=== PATIENT | female | born 1985 | race Caucasian/White ===

== ENCOUNTER 2016-06-02 22:26 | Day surgery (SDC) | payer MEDICAID, OTHER ==
[2016-06-02] VITALS (8 sets, daily range): BP systolic 118–125; BP diastolic 74–83; PULSE 89–96; RESP 16–22; TEMP 97–97.4; O2SAT 99–100
[~2016-06-02] VITALS: Ht 170.2 cm; Wt 62.1 kg
[~2016-06-02 22:26] MED LIST: DEXAMETHASONE 4mg/ml - 1ml INJECTION IV ONE; DOCO200C7 PO; ESMOLOL 100mg/10ml INJECTION IV ONE; FENTANYL 100mcg/2ml INJECTION IV ONE; HYDR-3989 PO; IBUP-1547 PO; LEVO25TA4 PO; METOCLOPRAMIDE 10mg/2ml INJECTION IV ONE; ONDANSETRON 4mg/2ml INJECTION IV ONE; PHENYLEPHRINE 10mg/ml INJECTION IV ONE; SALINE FLUSH 10ml SYRINGE IVF ONE
[2016-06-02] MEDS ORDERED: ONDANSETRON 4mg/2ml INJECTION IV ONE (22:45)
[2016-06-02] MEDS ORDERED: LR 1,000 ML IV PRN (22:45)
[2016-06-02] MEDS ORDERED: FAMOTIDINE 20 MG in NORMAL SALINE 50 ML IV ONE (22:45)
--- NOTE | 2016-06-02 22:48 | ANESPREOP ---
Anesthesia Record Date and Time DATE: 06/02/16 TIME: 22:47 Proposed Surgical Procedure D&C NPO since: 1800 Allergies: Coded Allergies: meperidine (Verified Allergy, Mild, 05/15/14) pseudoephedrine (Verified Allergy, Mild, 05/15/14) silicone (Verified Allergy, Mild, 05/15/14) Ht/Wt/BMI Height: 5 ' 3.00 " Weight: kg BMI: kg/m2 Medications Docosahexanoic Acid ( Dha) 200 Mg Capsule, 1 CAP PO DAILY, (Reported) Hydrocodone/Apap ([place] 5-325 Tablet) 1 Tab Tablet, 1-2 TAB PO Q4H PRN for PAIN Ibuprofen (Ibuprofen) 800 Mg Tablet, 800 MG PO Q8H PRN for PAIN Levothyroxine Sodium (Synthroid) 25 Mcg Tablet, 1 TAB PO ACB, (Reported) BEST IF TAKEN BEFORE BREAKFAST Currently on Beta Sabra: No Medical/Surgical History Anesthesia PMH: Reports: Other (12 WEEKS MISSED AB), Thyroid Disease (HYPO PER H&P), Denies: *Diabetes, Anesthesia Reactions, Malignant Hyperthermia Smoking Status: Never smoker Use Chewing Tobacco?: No Second Hand Exposure: No Substance Use Type: does not use Past Surgical History Orthopedic Surgeries: Yes - ACL REPAIR,KNEE SCOPE/SCREW PLACED Abdominal Surgeries: Genitourinary Surgeries: Cardiac Surgeries: Endocrine Surgeries: Reproductive Surgeries: Neurological Surgeries: Ear Surgeries: Nose Surgeries: Throat Surgeries: Other Surgeries: Yes - WISDOM TEETH PER H&P Anesthesia Adverse Reactions: FOUND none Family Hx of Anesthesia Advers: none Hx of Motion Sickness: No Physical Exam Respiratory: Bilat breath sounds equal, Lungs clear Cardiovascular: FOUND Regular rate, rhythm Airway Assessment Mallampati Score: I TMD: 3 Fingerbreadths Neck Extension: Good Overall Assessment: No Airway Concerns ASA: 2, E Plan Anesthesia Plan: GETA Discussion Discussed risks/options/alternatives of anesthesia and questions answered. Patient consents. Nursing pain assessment noted. Present: Family Member Attestation Statement Prior to the delivery of any anesthetic medication, I examined the patient, developed the plan, obtained the patient's consent and discussed the risk and benefits of the procedure with the patient/guardian. JUAN MCCLELLAND CRNA Jun 02, 2016 22:48
--- NOTE | 2016-06-02 22:52 | NUR ---
OR PT TAKEN TO OR VIA CART BY DR. BARROW, WITH IV FLUIDS INFUSING VIA GRAVITY.
[2016-06-02 23:01] LABS: EOSINOPHILS # (AUTO) 0.1 T/MM3 (0-0.5); HCT - HEMATOCRIT 36.6 % (36-46); HGB - HEMOGLOBIN 12.5 GM/DL (12-16); IMMATURE GRANULOCYTE # (AUTO) 0.02 T/MM3 (0.00-0.03); IMMATURE GRANULOCYTE % (AUTO) 0.2 % (0.0-0.5); LYMPHOCYTES % (AUTO) 19.3 % (23-45); MEAN CORPUSCULAR HGB 30.9 UUG (26-34); MEAN CORPUSCULAR HGB CONC(MCHC 34.2 GM/DL (31-37); MEAN CORPUSCULAR VOLUME 90.4 UM3 (80-100); MEAN PLATELET VOLUME 10.4 UM3 (9.4-12.4); MONOCYTES # (AUTO) 0.4 T/MM3 (0-0.8); MONOCYTES % (AUTO) 3.7 % (0-9.0); NEUTROPHILS % (AUTO) 75.8 % (33-66); RED BLOOD COUNT 4.05 M/MM3 (4.00-5.20); WBC - WHITE BLOOD COUNT 10.5 T/MM3 (4.5-11.0)
--- NOTE | 2016-06-02 23:18 | GYNOPNOTE1 ---
ACCOUNTING/FINANCE TUTOR Postoperative Note Date of Operation: 06/02/16 Preoperative Diagnosis: Incomplete Postoperative Diagnosis: Same as Preoperative Procedure: Suction D&C Surgeon: Corby Barrow MD Anesthesia Provider: Jame Vargas CRNA Anesthesia Type: general Estimated Blood Loss: 150cc CORBY BARROW MD Jun 02, 2016 23:18
[2016-06-02] MEDS ORDERED: HYDROCODONE/APAP 5 mg/325 mg TABLET PO PRN (23:30)
[2016-06-02] MEDS ORDERED: METOCLOPRAMIDE 10mg/2ml INJECTION IV PRN (23:30)
[2016-06-02] MEDS ORDERED: IBUPROFEN 200 MG TABLET PO PRN (23:30)
[2016-06-02] MEDS ORDERED: FENTANYL 100mcg/2ml INJECTION IV PRN (23:30)
[2016-06-02] MEDS ORDERED: ONDANSETRON 4mg/2ml INJECTION IV PRN ×2 (23:30)
--- NOTE | 2016-06-02 23:50 | ANESPO ---
Post-Op Note Date 06/02/16 Time: 23:50 Status Pt Participated in Evaluation: Pt participated in person Vital Signs Date Time Temp Pulse Resp B/P Pulse Ox O2 Delivery O2 Flow Rate FiO2 06/02/16 23:24 97.0 95 18 124/83 100 Mask 6.00 Respiratory Function: Airway patent, Regular respirations Cardiovascular Function: Regular pulse Mental Status: Alert/oriented Pain Level Intensity: 0 Hydration: IV infusing Complications during Recovery None apparent Follow-Up Instructions Instructions Per Surgeon JUAN MCCLELLAND CRNA Jun 02, 2016 23:50
[2016-06-03] VITALS (12 sets, daily range): BP systolic 104–139; BP diastolic 65–82; PULSE 75–100; RESP 12–20; TEMP 97.6–97.8; O2SAT 96–100; Ht 170.2 cm; Wt 62.1 kg
[2016-06-03 07:13] LABS: HCT - HEMATOCRIT 31.3 % (36-46); HGB - HEMOGLOBIN 10.7 GM/DL (12-16); MEAN CORPUSCULAR HGB CONC(MCHC 34.2 GM/DL (31-37); MEAN CORPUSCULAR VOLUME 90.7 UM3 (80-100); RED BLOOD COUNT 3.45 M/MM3 (4.00-5.20); WBC - WHITE BLOOD COUNT 6.8 T/MM3 (4.5-11.0)
--- NOTE | 2016-06-03 09:40 | NUR ---
SHIFT REPORT PT ARRIVED ON THE UNIT AT 2252 06/02 FROM PACU. PT TRANSFERRED EASILY FROM CART TO BED. PT ALERT/ORIENTED X3. VSS ON ROOM AIR 100% 02. AFEBRILE, AMBULATED TO BR SEVERAL TIMES THIS SHIFT WITH LITTLE EFFORT OR PAIN. DENIES N/V. NO PAIN MEDS GIVEN. BROUGHT TO THE UNIT WITH LR RUNNING AT 100. DCD AFTER BAG WAS FINISHED. SCANT AMOUNT OF BLOOD ON MAXI PAD. PT REQUESTED SEVERAL TIMES TO DC IV LOCK. THIS NURSE EXPLAINED TO THE PT THE IMPORTANCE OF MAINTAINING THE IV LOCK SITE. THE PT ADAMANTLY INSISTED THAT IT BE TAKEN OUT. I TOLD HER THAT IT WAS WITHIN HER RIGHTS TO REFUSE, AND I THEN RELUCTANTLY DCD THE IV SITE. PT ABLE TO TOLERATE FOOD AND FLUIDS WELL. DISCHARGE CRITERIA IS MET.
--- NOTE | 2016-06-03 09:46 | GSPOSTPN ---
Postoperative Progress Note 06/03/16 vss af disc surgery and hgb level ready for dc q&a f/u next wk UMM BARROW MD Jun 03, 2016 09:45
--- NOTE | 2016-06-03 10:54 | NUR ---
DISCHARGE PT DISCHARGED TO HOME IN GOOD CONDITION. D&C EDUCATION REVIEWED. PT'S QUESTIONS ANSWERED AND PT VERBALIZED UNDERSTANDING. SCANT AMOUNT OF BLOOD ON PAD. PT WHEELED OUT TO FRONT DOOR ACCOMPANIED BY NURSING STAFF AND .
--- NOTE | 2016-06-03 11:37 | OPNOTEF ---
DATE OF SURGERY: 06/02/2016 PREOPERATIVE DIAGNOSIS: 30-year-old white female, G4, P3, with incomplete AB. POSTOPERATIVE DIAGNOSIS: Same PROCEDURE: Suction D&C. EBL: 150 ml intraoperatively. SURGEON: Corby Davis MD ANESTHESIA: General endotracheal by Jame Vargas CRNA. COMPLICATIONS: None This is a patient of mine who came into the office this morning with two weeks of spotting. We diagnosed an intrauterine demise in the office today. We gave options of expectant management versus D&C and she opted for the D&C which was scheduled for tomorrow morning when she could be NPO. This evening she paged me and reported that she had passed the baby at home with some clots and the placenta. I talked her through reasons to still come in. The concern would be if the placenta hadn't really passed and it was just a blood clot. If her cramping and bleeding went away or greatly diminished then she was probably fine to just call me in the morning and come in at 8 a.m. for a sono to ensure it's all done. If it wasn't done then we would go ahead with the D&C tomorrow. If her bleeding got heavier or if she became lightheaded or dizzy, she was to call back. She dialed me back at my home phone a short time later and said she was pouring out blood and becoming lightheaded, so I advised her to come immediately to the emergency room and that I would call to get things ready and meet her there. I arrived at the ER in approximately 40-45 minutes before she arrived and waited. When she got there she said that she was still gushing blood and the pads were soaked underneath her. We re-consented her for a D&C and as soon as we could took her to the operating room. DESCRIPTION OF PROCEDURE After adequate general anesthesia the patient was prepped and draped in the low lithotomy position. The vaginal tract was filled with blood clots. The heavy weighted speculum was placed posteriorly and an anterior retractor was used to visualize the cervix. Cervix was dilated and filled with placenta. I used ring forceps to tease out the placenta and as much tissue as I could and there was a very large amount of tissue that came out. Then I used sharp curette to curettage the endometrial cavity. Then I used a #10 curved suction curette to empty all the clots out of the uterus. Then I clamped down the uterus with a bimanual exam and watched. Bleeding almost immediately ceased at that point. I watched for several minutes and did another pass of the sharp and suction curette and no additional tissue was obtained, so the surgery was completed and all instruments were removed from the vaginal tract. The patient went to the recovery room in stable condition. I went to the waiting room and talked her . ABHISHEK
== END 2016-06-03 10:48 | disposition home or self-care (01) ==
LOC: ED 22:26 → SCU 22:56 → SRG 22:56 → SCU 06-03 10:48
PROVIDERS: ATTEND Obstetrics & Gynecology
DX: O03.4 Incomplete spontaneous abortion without complication (principal); E03.9 Hypothyroidism, unspecified; Z79.899 Other long term (current) drug therapy
CPT/HCPCS: 36415; 59812; 85025; 85027; 86850; 86900; 86901; 99285; J0330; J1100; J2370; J2405; J2765; J3010; J7120

== ENCOUNTER → 2016-06-03 | Day surgery (SDC) | payer OTHER, MEDICAID ==
[~2016-06-03] MED LIST changes: -DEXAMETHASONE 4mg/ml - 1ml INJECTION IV ONE; -ESMOLOL 100mg/10ml INJECTION IV ONE; -FENTANYL 100mcg/2ml INJECTION IV ONE; +LIDOCAINE 1% (10mg/ml) 2ml SDV INJ ONE; +LR 1,000 ML IV SCH; -METOCLOPRAMIDE 10mg/2ml INJECTION IV ONE; -ONDANSETRON 4mg/2ml INJECTION IV ONE; -PHENYLEPHRINE 10mg/ml INJECTION IV ONE; -SALINE FLUSH 10ml SYRINGE IVF ONE
--- OUTSIDE RECORDS SUMMARY | 2016-06-09 20:52 | XMS REPORT | Continuity of Care Document ---
Author Author [facility] Organization [facility] Address Unknown Phone Unavailable Care Team Providers Care Mail Distributor Name Role Phone Jordon TRISTAN MD Primary Care Physician [phone] Insurance Providers Guarantor Flory Felix Address [address] [place] [address] Email [email or web address] [facility] Policy Number [id number] Subscriber's Name Flory Felix Relationship 18 Self Effective Date 16 Expiration Date 16 Advance Directives Directive Response Recorded Date/Time Ordered Resuscitation Status Full Code 06/02/16 10:56pm Resuscitation Documents on File No 06/03/16 6:31am DPOA for Healthcare Only No 06/03/16 6:31am Living Will No 06/03/16 6:31am Problems Active Problems Medical Problem Onset Date Status 05/31/2014 Acute Vaginal bleeding in Unknown Acute Medications Current Home Medications Medication Dose Units Route Directions Days Qty Instructions Start Date Docosahexanoic Acid ( Dha) 200 Mg Capsule 1 Cap Oral Daily 05/15/14 Ibuprofen 800 Mg Tablet 800 Mg Oral Every 8 Hours as needed for Pain 30 Tablet 05/31/14 Levothyroxine Sodium (Synthroid) 25 Mcg Tablet 1 Tab Oral Before Breakfast BEST IF TAKEN BEFORE BREAKFAST 05/15/14 Past Home Medications Medication Directions Ordered Status Acetaminophen/Hydrocodone Bitart ([place] 5-325 Tablet) 1 Tab Tablet, 1-2 Tab Oral Every 4 Hours as needed for Pain 05/31/14 Discontinued Social History Social History Problem Response Recorded Date/Time Onset Date Status Reason for Hospitalization D&C 06/03/2016 9:58am Not Applicable Not Applicable Chewing Tobacco Status No 06/02/2016 10:57pm Not Applicable Not Applicable Hx Substance Use No 06/02/2016 10:57pm Not Applicable Not Applicable Hx Alcohol Use No 06/02/2016 10:57pm Not Applicable Not Applicable Has the pt used tobacco in the last 12 months No 06/03/2016 6:35am Not Applicable Not Applicable Query Response Start Date Stop Date Smoking Status Never smoker Hospital Discharge Instructions Instructions: Care Instructions: I was in the hospital because (patient own words): Because I lost a baby and needed a D&C Discharge Diet: regular Discharge Activity: per instruction sheet Follow Up Appointments: next week-already made Pending Lab / Results: Will review at f/u apt Patient Instructions: per instruction sheet Expected Signs/Symptoms: per instruction sheet Notify Physician If: per instruction sheet During Business Hours:: Please call the physician's office at [phone] After Business Hours:: Please call [phone] and have the skidder lever operator page the physician. Pain Management/Treatment: per instruction sheet Wound/Incision Care: n/a Condition at time of discharge: Good Plan of Care Discharge Date 06/03/16 10:48am Instructions/Education Provided Dilation and Curettage (DC) Prescriptions See Medication Section Functional Status Query Response Date Recorded Mobility Status Ambulatory June 02, 2016 11:00pm Assistive Devices None June 02, 2016 11:00pm Activity Limitations None June 02, 2016 11:00pm Feeding Ability Independent June 02, 2016 11:00pm Toileting Ability Independent June 02, 2016 11:00pm Grooming Ability Independent June 02, 2016 11:00pm Dressing Ability Independent June 02, 2016 11:00pm Driving Ability Independent June 02, 2016 11:00pm Housework Ability Independent June 02, 2016 11:00pm Meal Preparation Ability Independent June 02, 2016 11:00pm Stair Climbing Ability Independent June 02, 2016 11:00pm Ability to complete ADL's impeded by No change June 03, 2016 6:31am Cognitive/Perceptual Impairments None June 02, 2016 11:00pm Allergies, Adverse Reactions, Alerts Allergen Type Severity Reaction Status Last Updated Pseudoephedrine Allergy Mild Active 05/15/14 Meperidine Allergy Mild Active 05/15/14 Silicone Allergy Mild Active 05/15/14 Immunizations Query Response on File Recorded Date/Time Hx Influenza Vaccination No 06/03/16 6:35am Hx Pneumococcal Vaccination No 06/03/16 6:35am Hx Tetanus, Diptheria, Pertussis No 05/29/14 4:28pm Hx Influenza Vaccination No 06/03/16 6:35am Hx Tetanus Diptheria No 05/29/14 4:28pm Hx Tetanus, Diptheria, Pertussis No 05/29/14 4:28pm Hx Tetanus Toxoid Vaccination Y 05/01/14 05/29/14 4:28pm Vital Signs Acute Vital Signs Vital Response Date/Time Temperature (Fahrenheit) 97.6 deg F (96.8 - 99.1) 06/03/2016 7:16am Temperature (Calculated Celsius) 36.48644 degrees C (36.0 - 37.3) 06/03/2016 7:16am Temperature Source Oral 06/03/2016 7:16am Pulse Rate (adult) 85 bpm (60 - 100) 06/03/2016 9:08am Respiratory Rate 15 breaths/min (10 - 20) 06/03/2016 9:08am O2 Sat by Pulse Oximetry 98 % (90 - 100) 06/03/2016 7:16am Oxygen Delivery Method Room Air 06/03/2016 7:16am Oxygen Delivery Method Room Air 06/02/2016 11:55pm Oxygen Flow Rate 6.00 L/min 06/02/2016 11:30pm Blood Pressure 113/67 mm Hg 06/03/2016 7:16am Blood Pressure Source Automatic Cuff 06/03/2016 7:16am Height (Feet) 5 feet 06/03/2016 2:44am Height (Inches) 7.00 inches 06/03/2016 2:44am Weight (Kilograms) 62.100 kg 06/03/2016 7:16am Body Mass Index (BMI) 21.6 06/03/2016 2:44am Results Laboratory Results Test Name Result Units Flags Reference Collection Date/Time Result Date/ Time Comments White Blood Count 6.8 T/MM3 4.5-11.0 06/03/2016 7:05am 06/03/2016 7: 35am Red Blood Count 3.45 M/MM3 L 4.00-5.20 06/03/2016 7:05am 06/03/2016 7: 35am Hemoglobin 10.7 GM/DL D L 12-16 06/03/2016 7:05am 06/03/2016 7:35am Hematocrit 31.3 % D L 36-46 06/03/2016 7:05am 06/03/2016 7:35am Mean Corpuscular Volume 90.7 UM3 80-100 06/03/2016 7:05am 06/03/2016 7: 35am Mean Corpuscular Hemoglobin 31.0 UUG 26-34 06/03/2016 7:05am 2016 7:35am Mean Corpuscular Hemoglobin Concent 34.2 GM/DL 31-37 06/03/2016 7:05am 06/03/2016 7:35am RDW Standard Deviation 40.1 FL 36.9-50.2 06/03/2016 7:05am 06/03/2016 7 :35am Platelet Count 198 T/MM3 130-400 06/03/2016 7:05am 06/03/2016 7:35am Mean Platelet Volume 10.0 UM3 9.4-12.4 06/03/2016 7:05am 06/03/2016 7: 35am Neutrophils (%) (Auto) 75.8 % H 33-66 06/02/2016 10:53pm 06/02/2016 11: 01pm Lymphocytes (%) (Auto) 19.3 % L 23-45 06/02/2016 10:53pm 06/02/2016 11: 01pm Monocytes (%) (Auto) 3.7 % 0-9.0 06/02/2016 10:53pm 06/02/2016 11:01pm Eosinophils (%) (Auto) 1.0 % 0-4 06/02/2016 10:53pm 06/02/2016 11:01pm Basophils (%) (Auto) 0.0 % 0-2 06/02/2016 10:53pm 06/02/2016 11:01pm Immature Granulocyte % (Auto) 0.2 % 0.0-0.5 06/02/2016 10:53pm 2016 11:01pm Absolute Neutrophils (auto) 8.0 T/MM3 H 1.8-7.7 06/02/2016 10:53pm 06/02 11:01pm Absolute Lymphocytes (auto) 2.0 T/MM3 1-4.8 06/02/2016 10:53pm 2016 11:01pm Absolute Monocytes (auto) 0.4 T/MM3 0-0.8 06/02/2016 10:53pm 2016 11:01pm Absolute Eosinophils (auto) 0.1 T/MM3 0-0.5 06/02/2016 10:53pm 2016 11:01pm Absolute Basophils (auto) 0.0 T/MM3 0-0.2 06/02/2016 10:53pm 2016 11:01pm Absolute Immature Granulocyte (auto 0.02 T/MM3 0.00-0.03 06/02/2016 10: 53pm 06/02/2016 11:01pm Procedures No known history of procedures. Encounters Encounter Location Arrival/Admit Date Discharge/Depart Date Attending Provider Departed [facility] 06/02/16 10:56pm 06/03/16 10:48am UMM BARROW MD Recent Diagnosis Vaginal bleeding in
== END ==
LOC: SCU 08:00
PROVIDERS: ATTEND Obstetrics & Gynecology
DX: O03.4 Incomplete spontaneous abortion without complication (principal); E03.9 Hypothyroidism, unspecified; Z79.899 Other long term (current) drug therapy